=== PATIENT | male | born 2000 | race Caucasian/White ===

== ENCOUNTER 2020-06-01 09:55 | Emergency (ER) | payer OTHER ==
[~2020-06-01 09:55] MED LIST: ALYQ20 MG PO; AMOXICILLIN500 M2 PO; ASPIRIN CHEWABL81 MG PO; BACITRACIN15 GM TOP; DIGOX125 MCG PO; DIVALPROEX SOD250 M1 PO; DIVALPROEX SOD500 M1 PO; KEFLEX250 MG PO; LISINOPRIL30 MG PO; SERTRALINE HCL100 MG PO; VYVANSE60 MG PO; ZYRTEC10 MG PO
[2020-06-01 10:52] LABS: INR 1.19 (0.9-1.2); PROTHROMBIN TIME 14.3 SECONDS (11.4-13.6); PTT 29.1 SECONDS (22.2-34.7)
[2020-06-01 10:54] LABS: D-DIMER 0.62 ug/mLFEU (0.00-0.41)
[2020-06-01 10:55] LABS: BUN/CREAT RATIO (CALC) 23.3 RATIO; CREATININE 0.86 mg/dL (0.67-1.17); POTASSIUM 4.4 mmol/L (3.5-5.1)
[2020-06-01 11:22] LABS: BASOPHIL 0.3 % (0-2); EOSINOPHIL 0.5 % (0-5); HGB 18.4 g/dl (13.2-18.0); MCH 31.3 pg (25.0-31.0); MCHC 35.4 g/dL (32.0-36.0); MCV 88.4 fL (78.0-100.0); MONOCYTE 9.8 % (0-12); MPV 11.1 fL (6.0-9.5); NEUTROPHIL 81.1 % (41-80); NRBC 0; PLT 192 K/uL (150-400); RBC 5.88 M/uL (4.70-6.00); RDW 13.2 % (11.5-14.0); WBC 14.4 K/uL (4.0-10.5)
== END 2020-06-01 13:54 | disposition home or self-care (01) ==
LOC: FER 09:55
PROVIDERS: Emergency Medicine
DX: R05 Cough (principal); R23.3 Spontaneous ecchymoses; R06.02 Shortness of breath; I45.10 Unspecified right bundle-branch block; I51.9 Heart disease, unspecified; Z79.899 Other long term (current) drug therapy; Z79.82 Long term (current) use of aspirin
CPT/HCPCS: 36415; 36600; 71046; 71275; 80048; 82803; 85025; 85379; 85610; 85730; 93005; Q9967

== ENCOUNTER 2021-11-28 05:39 | Emergency (ER) | payer OTHER ==
[2021-11-28 05:52] LABS: BASOPHIL 0.7 % (0-2); EOSINOPHIL 1.9 % (0-5); HCT 49.2 % (42.0-52.0); HGB 17.1 g/dl (13.2-18.0); LYMPHOCYTE 28.1 % (15-48); MCH 30.3 pg (25.0-31.0); MCHC 34.8 g/dL (32.0-36.0); MCV 87.2 fL (78.0-100.0); MPV 10.5 fL (6.0-9.5); NEUTROPHIL 58.7 % (41-80); NRBC 0; PLT 169 K/uL (150-400); RBC 5.64 M/uL (4.70-6.00)
[2021-11-28 06:21] LABS: ALKALINE PHOSHATASE 95 U/L (46-116); ALT 49 U/L (16-63); AST 37 U/L (15-37); BILIRUBIN - TOTAL 0.4 mg/dL (0.2-1.0); BUN 20 mg/dL (7-18); CHLORIDE 101 mmol/L (98-107); CO2 (BICARBONATE) 27 mmol/L (21-32); CREATININE 1.11 mg/dL (0.67-1.17); GLUCOSE 102 mg/dL (74-106); POTASSIUM 3.7 mmol/L (3.5-5.1)
[2021-11-28 06:23] LABS: LACTIC ACID 4.1 mmol/L (0.4-1.9)
[2021-11-28 06:32] LABS: ALBUMIN 3.8 g/dL (3.4-5.0); GLOBULIN (CALCULATION) 3.2 g/dL
[2021-11-28 06:33] LABS: ACETAMINOPHEN (TYLENOL) < 2.0 ug/mL (10.0-30.0)
== END 2021-11-28 08:50 | disposition other institution (70) ==
LOC: FER 05:39
PROVIDERS: Emergency Medicine
DX: J96.01 Acute respiratory failure with hypoxia (principal); R56.9 Unspecified convulsions; R04.2 Hemoptysis
CPT/HCPCS: 36415; 36600; 71045; 80053; 82803; 83605; 83880; 84145; 84484; 85025; 87040; 93005; G0480; J0692; J1940; J1953; J2405